=== PATIENT | male | born 2000 | race Caucasian/White ===

== ENCOUNTER 2020-11-25 09:12 | Emergency (ER) | payer BC ==
[2020-11-25] MEDS ORDERED: Lidocaine 1% 20 ML MDV ONE (09:23)
[2020-11-25] MEDS ORDERED: Lidocaine 1% w/Epinephrine 1:100K 20 ML VIAL ONE (09:25)
[2020-11-25] MEDS ORDERED: Bacitracin 1 PK ONE (09:41)
[2020-11-25] MEDS ORDERED: Boostrix 0.5 ML (Tdap) VIAL ONE (09:51)
== END 2020-11-25 10:05 | disposition home or self-care (01) ==
LOC: MADERS 09:12
DX: S71.112A Laceration without foreign body, left thigh, initial encounter (principal); F17.220 Nicotine dependence, chewing tobacco, uncomplicated; W27.0XXA Contact with workbench tool, initial encounter
CPT/HCPCS: 12002; 90471; 90715